=== PATIENT | female | born 1985 | race Caucasian/White ===

== ENCOUNTER 2018-03-06 21:46 | Emergency (ER) | payer OTHER ==
[~2018-03-06] VITALS: Ht 165.1 cm; Wt 64.9 kg
[2018-03-06 21:51] VITALS: BP 125/79; PULSE 107; RESP 19; Ht 165.1 cm; Wt 64.9 kg
[2018-03-06] MEDS ORDERED: IBUP-1542 PO (23:27)
[2018-03-06] MEDS ORDERED: PRED20TA PO (23:27)
[2018-03-06] MEDS ORDERED: ALBU8.5H8 INH (23:27)
[2018-03-06] MEDS ORDERED: GUAI120S26 PO (23:27)
[2018-03-06] MEDS ORDERED: CETI10CA PO (23:27)
[2018-03-06] MEDS ORDERED: AMOX500C2 PO (23:27)
[2018-03-06] MEDS ORDERED: IBUPROFEN 600 MG TAB PO ONE (23:30)
--- NOTE | 2018-03-06 23:33 | ERD ---
ER Documentation Chief Complaint Chief Complaint C/O STACI HEAR ACHE AND ST X2 DAYS HPI 33-year-old female presents here to emergency department for multiple complaints, complaining of cough dry cough for 2 weeks on and off wheezing, complaining of bilateral ear pain throbbing pain 6/10 scale, better or worse with anything, complains of sore throat burning pain, 6/10 scale, accompanied with hoarseness of the voice. Patient has not taken any medications to help with symptoms. Patient denies any sick contacts, denies any recent travels. ROS All systems reviewed and are negative except as per history of present illness. Medications Home Meds Active Scripts Ibuprofen* (Motrin*) 600 Mg Tab, 600 MG PO Q6H PRN for PAIN AND OR ELEVATED TEMP, #30 TAB Prov:BARBARA WILSON NP 03/06/18 Prednisone* (Prednisone*) 20 Mg Tab, 60 MG PO DAILY for 5 Days, TAB Prov:BARBARA WILSON NP 03/06/18 Amoxicillin* (Amoxicillin*) 500 Mg Cap, 500 MG PO TID for 10 Days, CAP Prov:BARBARA WILSON NP 03/06/18 Cetirizine Hcl* (Zyrtec*) 10 Mg Capsule, 10 MG PO DAILY, #30 TAB.CHEW Prov:BARBARA WILSON NP 03/06/18 Tcltznilksi-R-Wrnemcdoin Hb* (Guaifenesin* DM Syrup) 120 Ml Syrup, 10 ML PO Q4H PRN for COUGH, #120 ML Prov:BARBARA WILSON NP 03/06/18 Albuterol Sulfate* (Proair HFA*) 8.5 Gm Hfa.aer.ad, 2 PUFF INH Q4H PRN for WHEEZING AND SOB, #1 INHALER Prov:BARBARA WILSON NP 03/06/18 Allergies Allergies: Coded Allergies: No Known Allergy (Unverified , 03/06/18) PMhx/Soc Medical and Surgical Hx: pt denies Medical Hx, pt denies Surgical Hx History of Surgery: No Anesthesia Reaction: No Hx Neurological Disorder: No Hx Respiratory Disorders: No Hx Cardiac Disorders: No Hx Psychiatric Problems: No Hx Miscellaneous Medical Probl: No Hx Alcohol Use: No Hx Substance Use: No Hx Tobacco Use: No Smoking Status: Never smoker FmHx Family History: No diabetes, No coronary disease, No other Physical Exam Vitals Vital Signs Date Temp Pulse Resp B/P (MAP) Pulse Ox O2 O2 Flow FiO2 Time Delivery Rate 03/06/18 99.9 107 19 125/79 98 21:51 (94) Physical Exam GENERAL: The patient is well developed and appropriate for usual state of health, in no apparent distress. HEENT: Atraumatic. Ears: Bilateral ear tympanic membrane noted to be erythematous and bulging. No ear canal swelling. No ear discharge. Nose: normal nasal turbinates, no erythema or swelling. Normal nasal discharge. Throat: oropharynx erythema. No tonsillar swelling or tonsillar exudates. No lymphadenopathy. Noted hoarseness of the voice. CHEST: Clear to auscultation bilaterally. There are no rales, wheezes or rhonchi. HEART: Regular rate and rhythm. No murmurs, clicks, rubs or gallops. No S3 or S4. ABDOMEN: Soft, nontender and nondistended. Good bowel sounds. No rebound or guarding. No gross peritonitis. No gross organomegaly or masses. No John sign or McBurney point tenderness. BACK: No midline or flank tenderness. EXTREMITIES: Equal pulses bilaterally. There is no peripheral clubbing, cyanosis or edema. No focal swelling or erythema. Full range of motion. Grossly neurovascularly intact. NEURO: Alert and oriented. Cranial nerves 2-12 intact. Motor strength in all 4 extremities with 5/5 strength. Sensation grossly intact. Normal speech and gait. SKIN: There is no apparent rash or petechia. The skin is warm and dry. HEMATOLOGIC AND LYMPHATIC: There is no evidence of excessive bruising or lymphedema. No gross cervical, axillary, or inguinal lymphadenopathy. Results 24 hrs Current Medications Medications Dose Sig/Elidia Start Time Status Last (Trade) Ordered Route PRN Stop Time Admin Dose Reason Admin Ibuprofen 600 mg ONCE ONCE 03/06/18 03/06/18 (Motrin) PO 23:30 23:18 03/06/18 23:31 Patient was given medication for pain here in emergency department, after treatment, patient verbalized feeling much better. Patient's pain is improved. Procedures/MDM Medical decision making: Patient symptoms is likely consistent with right otitis media. No symptoms of otitis externa or mastoiditis. No foreign body in the ear. No TM perforation. No cerumen impaction. She also has pharyngitis and acute bronchitis. No symptoms of any pneumonia, no symptoms of any peritonsillar abscess, no suspicion for any strep throat. Disposition: Home. Stable. Prescription was given for amoxicillin, Zyrtec, ibuprofen guaifenesin DM albuterol prednisone, is advised to follow-up with primary care doctor in 2-3 days for reevaluation of symptoms. Patient is advised to avoid using Q-tips to clean the ear. Patient is advised to return to emergency department for any worsening symptoms. Disclaimer: Inadvertent spelling and grammatical errors are likely due to EHR/dictation software use and do not reflect on the overall quality of patient care. Also, please note that the electronic time recorded on this note does not necessarily reflect the actual time of the patient encounter. Departure Diagnosis: Primary Impression: Laryngitis Additional Impressions: Otitis media Otitis media type: serous Chronicity: acute Laterality: bilateral Recurrence: non-recurrent Qualified Codes: H65.03 - Acute serous otitis media, bilateral Acute bronchitis Bronchitis organism: unspecified organism Qualified Codes: J20.9 - Acute bronchitis, unspecified Condition: Stable Patient Instructions: Bronchitis With Wheezing (Adult), Laryngitis, Otitis Media, Abx Tx (Adult) BARBARA WILSON NP Mar 06, 2018 23:33
== END 2018-03-06 23:42 | disposition home or self-care (01) ==
LOC: FTE 21:46
DX: J04.0 Acute laryngitis (principal); H65.03 Acute serous otitis media, bilateral; J20.9 Acute bronchitis, unspecified
CPT/HCPCS: Z7502; Z7610; 99283